=== PATIENT | female | born 1960 | race Caucasian/White ===

== ENCOUNTER 2018-05-10 10:28 | Emergency (ER) | payer OTHER ==
[~2018-05-10] VITALS: Ht 167.6 cm; Wt 68.0 kg
[2018-05-10] MEDS ORDERED: cloNIDine HCL 0.1 MG TAB PO ONE (11:00)
[2018-05-10 12:19] LABS: Urine Bacteria NONE SEEN /hpf (None Seen); Urine Blood Negative /uL (Negative); Urine Specific Gravity 1.005 (1.001-1.035); Urine WBC <1 /hpf (0 - 5)
[2018-05-10 12:24] LABS: Albumin 4.3 g/dL (3.4-5.0); Anion Gap 9 (5-15); Blood Urea Nitrogen 10 mg/dL (7-18); Calcium 9.3 mg/dL (8.5-10.1); Carbon Dioxide 25 mmol/L (21-32); Chloride 103 mmol/L (98-107); Glucose 98 mg/dL (74-106); Potassium 4.2 mmol/L (3.5-5.1); Sodium 137 mmol/L (136-145)
[2018-05-10 12:29] LABS: Alanine Aminotransferase 24 U/L (13-56); Alkaline Phosphatase 96 U/L (45-117); Aspartate Aminotransferase 23 U/L (15-37); BUN/Creatinine Ratio 12.3; Bilirubin, Total 0.4 mg/dL (0.2-1.0); GFR African American 93 mL/min; GFR Non-African American 77 mL/min; Total Protein 8.2 g/dL (6.4-8.2)
[2018-05-10 13:06] LABS: Basophils # (auto) 0 uL; Basophils % (auto) 0.6 % (0.0-2.0); Eosinophils # (auto) 0.2 uL; Eosinophils % (auto) 2.6 % (0.0-7.0); Hematocrit 43.4 % (36.0-46.0); Hemoglobin 14.4 g/dL (12.2-16.2); Lymphocytes % (auto) 28.4 % (10.0-50.0); Mean Corpuscular Hemoglobin 29.8 pg (28.0-32.0); Mean Corpuscular Hgb Conc. 33.2 g/dL (32.0-36.0); Mean Corpuscular Volume 89.7 fL (80.0-100.0); Monocytes # (auto) 0.6 uL; Monocytes % (auto) 9.1 % (0.0-12.0); Neutrophils # (auto) 4.2 uL; Neutrophils % (auto) 59.3 % (37.0-80.0); Platelet Count (auto) 336 10^3/uL (140-450); Red Blood Cells 4.84 10^6/uL (4.0-5.20); Red Cell Distribution Width 13.8 % (11.8-14.3)
[2018-05-10 13:11] VITALS: BP 115/72
== END 2018-05-10 14:05 | disposition home or self-care (01) ==
LOC: ER 10:35
DX: I10 Essential (primary) hypertension (principal)
CPT/HCPCS: 36415; 71046; 80053; 81001; 84484; 85025; 93005